=== PATIENT | female | born 1985 | race African-American/Black ===

== ENCOUNTER 2017-11-09 00:49 | Observation (INO) ==
[2017-11-09 08:49] VITALS: BP 121/67
== END 2017-11-09 09:15 | disposition home or self-care (01) ==
LOC: N.LD 00:49 → N.LDOUT 00:49 → N.LD 00:50
PROVIDERS: ADMIT Obstetrics & Gynecology; ATTEND Obstetrics & Gynecology

== ENCOUNTER 2018-01-17 11:52 | Inpatient (IN) ==
[2018-01-20 07:55] VITALS: BP 162/85
== END 2018-01-20 11:50 | disposition home or self-care (01) | DRG 765 ==
LOC: N.LDOUT 11:52 → N.LD 11:55 → N.OB 01-18 16:47
PROVIDERS: ADMIT Obstetrics & Gynecology; ATTEND Obstetrics & Gynecology
PROC: LDCSECT (ICD-10-PCS; 2018-01-18 09:20)

== ENCOUNTER 2019-04-18 07:30 | Inpatient (IN) ==
[2019-04-18] MEDS ORDERED: ceFAZolin 2,000 MG in PREMIX 1 EACH IV ONE (08:07)
[2019-04-18] MEDS ORDERED: CITRIC ACID/SODIUM CITRATE 30 ML UDCUP PO ONE (08:07)
[2019-04-18] MEDS ORDERED: FAMOTIDINE 20 MG/2 ML VIAL IV ONE (08:07)
[2019-04-18] MEDS: LACTATED RINGERS 1,000 ML IV SCH ×2 (08:25→10:01)
[2019-04-18 08:32] LABS: Basophils % 0.3 % (0.0-0.8); Eosinophils # 0.2 10*3/uL (0.0-0.87); Eosinophils % 1.6 % (0.00-10.9); Hematocrit 28.7 VOL% (35.7-47.0); Hemoglobin 9.5 GM/DL (12.0-16.0); Immature Granulocytes % 0.4 %; Immature Granulocytes Absolute 0.04 #; Lymphocytes # 2.9 10*3/uL (1.4-4.0); Lymphocytes % 31.2 % (21.3-54.2); Mean Corpuscular HGB Conc 33.1 GM/DL (32-36); Mean Platelet Volume 12.6 FL (9.6-12.0); Monocytes % 6.3 % (1.7-12.7); Neutrophils % 60.2 % (38.7-73.9); Platelet Count 163 T/CUMM (130-400); Red Blood Count 3.26 MC/CUMM (3.8-5.5); Red Cell Distribution Width 13.2 % (9.3-17.3); White Blood Count 9.2 T/CUMM (4-12)
[2019-04-18 08:52] LABS: Albumin 2.5 G/DL (3.4-5.0); Bilirubin,Total 0.4 MG/DL (0.2-1.0); Calcium 8.4 MG/DL (8.5-10.1); Osmolality,Calculated 272.5 MOS/KG (273-304); Total Protein 7.1 G/DL (6.4-8.3)
[2019-04-18] MEDS ORDERED: PHENYLEPHRINE 1 MG/10 ML SYRINGE IV ONE (08:52)
[2019-04-18] MEDS ORDERED: MORPHINE 10 MG/10 ML VIAL ONE (08:53)
[2019-04-18] MEDS ORDERED: ONDANSETRON 4 MG/2 ML VIAL ONE ×2 (08:53→08:54)
[2019-04-18] MEDS ORDERED: BUPIVACAINE SPINAL 0.75% 2 ML AMP SPINAL ONE (08:53)
[2019-04-18] MEDS ORDERED: fentaNYL 100 MCG/2 ML VIAL ONE (08:53)
[2019-04-18] MEDS ORDERED: OXYTOCIN/LR 20 UNIT/1,000 ML BAG IV ONE (09:54)
[2019-04-18 10:06] LABS: Apearance,Urine CLEAR (Clear); Bacteria,Urine Occasional /HPF (Few); Bilirubin,Urine Negative (Negative); Blood, Urine Negative (Negative); Glucose,Urine (UA) Negative (Negative); Ketones,Urine 5 mg/dL (Negative); Mucus,Urine Occasional /LPF (Occasional); Nitrite,Urine Negative (Negative); Protein,Urine 100 MG/DL; RBC,Urine 1 /HPF (0-4); Squamous Epithelial Cell,Urine Occasional /HPF (0-10); Urine Color Yellow (Yellow); Urine Specific Gravity 1.013 (1.001-1.035); WBC,Urine 4 /HPF (0-6)
[2019-04-18] MEDS ORDERED: SIMETHICONE CHEW 80 MG TABLET PO PRN (16:29)
[2019-04-18] MEDS ORDERED: RHO(D) IMMUNE GLOBULIN 300 MCG SYRINGE IM ONE (16:29)
[2019-04-18] MEDS ORDERED: MAGNESIUM HYDROXIDE SUSP 30 ML UDCUP PO PRN (16:29)
[2019-04-18] MEDS ORDERED: ONDANSETRON 4 MG/2 ML VIAL IV PRN (16:29)
[2019-04-18 19:35] LABS: Basophils % 0.2 % (0.0-0.8); Eosinophils # 0.1 10*3/uL (0.0-0.87); Eosinophils % 0.7 % (0.00-10.9); Hematocrit 29.3 VOL% (35.7-47.0); Hemoglobin 9.4 GM/DL (12.0-16.0); Immature Granulocytes % 0.4 %; Immature Granulocytes Absolute 0.05 #; Lymphocytes # 3.1 10*3/uL (1.4-4.0); Lymphocytes % 24.5 % (21.3-54.2); Mean Corpuscular HGB Conc 32.1 GM/DL (32-36); Mean Corpuscular Volume 89.3 FL (87-102); Mean Platelet Volume 12.4 FL (9.6-12.0); Monocytes % 6.3 % (1.7-12.7); Neutrophils % 67.9 % (38.7-73.9); Platelet Count 158 T/CUMM (130-400); Red Blood Count 3.28 MC/CUMM (3.8-5.5); Red Cell Distribution Width 13.3 % (9.3-17.3); White Blood Count 12.8 T/CUMM (4-12)
[2019-04-18] MEDS: KETOROLAC 30 MG/1 ML VIAL IV SCH ×2 (19:38→19:39)
[2019-04-18] MEDS: ceFAZolin 1,000 MG in SYRINGE 1 EACH IV SCH (19:45)
[2019-04-18] MEDS ORDERED: diphenhydrAMINE 50 MG/1 ML VIAL IV PRN (21:23)
[2019-04-18] MEDS: DOCUSATE SODIUM 100 MG CAPSULE PO SCH (21:39)
[2019-04-19] MEDS ORDERED: diphenhydrAMINE CAP 25 MG CAPSULE PO PRN (00:07)
[2019-04-19] MEDS: KETOROLAC 30 MG/1 ML VIAL IV SCH ×2 (01:02→06:51)
[2019-04-19] MEDS: ceFAZolin 1,000 MG in SYRINGE 1 EACH IV SCH (03:56)
[2019-04-19 04:40] LABS: Basophils % 0.3 % (0.0-0.8); Eosinophils # 0.1 10*3/uL (0.0-0.87); Eosinophils % 0.9 % (0.00-10.9); Hematocrit 27.8 VOL% (35.7-47.0); Immature Granulocytes % 0.5 %; Immature Granulocytes Absolute 0.05 #; Lymphocytes # 1.9 10*3/uL (1.4-4.0); Lymphocytes % 17.7 % (21.3-54.2); Mean Corpuscular HGB Conc 32.4 GM/DL (32-36); Mean Corpuscular Volume 88.3 FL (87-102); Monocytes % 7.2 % (1.7-12.7); Neutrophils % 73.4 % (38.7-73.9); Platelet Count 163 T/CUMM (130-400); Red Blood Count 3.15 MC/CUMM (3.8-5.5); Red Cell Distribution Width 13.2 % (9.3-17.3); White Blood Count 10.6 T/CUMM (4-12)
[2019-04-19] MEDS: DOCUSATE SODIUM 100 MG CAPSULE PO SCH ×2 (08:41→21:35)
[2019-04-19] MEDS: MULTIVITAMIN (PRENATAL) TABLET PO SCH (08:41)
[2019-04-19] MEDS ORDERED: ETONOGESTREL 68 MG IMPLANT SUBCUT ONE (09:31)
[2019-04-19] MEDS: IBUPROFEN 800 MG TABLET PO SCH ×2 (14:02→21:35)
[2019-04-19] MEDS ORDERED: ALUMINUM/MAGNES/SIMETH MAX STR 30 ML UDCUP PO PRN (22:32)
[2019-04-20] MEDS: IBUPROFEN 800 MG TABLET PO SCH (05:00)
[2019-04-20] MEDS: DOCUSATE SODIUM 100 MG CAPSULE PO SCH (08:10)
[2019-04-20] MEDS: MULTIVITAMIN (PRENATAL) TABLET PO SCH (08:10)
[2019-04-20 08:42] VITALS: BP 134/73
[2019-04-20] MEDS ORDERED: DIPH/TET/ACEL PERT BOOSTER VACCINE 0.5 ML VIAL IM ONE (11:15)
== END 2019-04-20 12:30 | disposition home or self-care (01) | DRG 540 ==
LOC: N.LD 07:49 → N.OB 15:43
PROVIDERS: ADMIT Obstetrics & Gynecology; ATTEND Obstetrics & Gynecology
PROC: LDCSECT (ICD-10-PCS; 2019-04-18 12:15)